=== PATIENT | female | born 1990 | race Caucasian/White ===

== ENCOUNTER 2019-05-21 05:29 | Inpatient (IN) ==
--- NOTE | 2019-05-20 13:01 | History & Physical Report ---
Date of Service May 20, 2019 Assessment & Plan (1) Supervision of normal intrauterine in multigravida: IUP at 39 weeks presents for repeat section The procedure and its risks were reviewed with the patient and all of her questions were answered to her satisfaction and consent was signed. Present on Admission?: Yes (2) H/O: : Present on Admission?: Yes History of Present Illness Primary Care Provider: NO PCP Patient is a 28 yo white female EDC 05/28/19 who presents at 39 weeks for repeat C/S. Her thus far has been uncomplicated. First was done for failure to progress. GBS negative. Allergies Allergy/AdvReac Type Severity Reaction Status Date / Time No Known Drug Allergies Allergy Verified 05/20/19 08:46 Home Medications Home Medications Medication Instructions Recorded Confirmed Type vit-iron fum-folic ac PO 12/09/18 05/20/19 History Patient History Medical History (Updated 12/09/18 @ 14:06 by Sarah Nixon) GBS carrier History of ovarian cyst History of prolonged History of spontaneous History of varicella vaccination Pain of right calf Pelvic pain Premature rupture of membranes Surgical History (Updated 12/09/18 @ 14:06 by Sarah Nixon) History of delivery x2 Family History (Updated 12/09/18 @ 14:07 by Sarah Nixon) Sister Diabetes Endometriosis Social History (Updated 12/09/18 @ 14:08 by Sarah Nixon) marital status: Current Living Situation: Family Current Living Situation Comment: spouse and children current occupation: stay at home mom Feels Safe at Home: Yes Smoking Status: Never smoker Hx Alcohol Use: No Hx Substance Use: No Review of Systems All systems reviewed & are unremarkable except as noted in HPI & below Physical Exam Constitutional: WD/WN, vitals as above Respiratory: normal respiratory effort, lungs clear to auscultation Cardiovascular: RRR, no murmur, no edema Gastrointestinal (Abdomen): normal bowel sounds, soft, nontender, no hepatosplenomegaly Inspection/Auscultation: + abdominal surgical scar (well healed - low transverse) Psychiatric: A+Ox3, euthymic affect Genitourinary: OB Exam Abdomen: + fundal height (40cm), + heart tones (130), + vertex and + estimated weight (8-9 pounds); no regular contractions cervix exam declined
[2019-05-21] MEDS ORDERED: LACTATED RINGER'S 1,000 ML IV SCH ×3 (05:45→08:45)
[2019-05-21] MEDS ORDERED: CITRIC ACID/SODIUM CITRATE 15 ML UDC PO SCH (06:00)
[2019-05-21] MEDS ORDERED: CEFAZOLIN 2000MG 2,000 MG/15 ML SYR IV SCH (06:00)
[2019-05-21 06:06] LABS: Basophils # (auto) 0.01 K/uL (0-0.2); Basophils % (auto) 0.1 %; Eosinophils # (auto) 0.08 K/uL (0-0.5); Hematocrit (blood only) 34.8 % (37-47); Hemoglobin 12.2 g/dL (12.0-16.0); Immature Granulocytes # (auto) 0.03 K/uL (0.00-0.02); Immature Granulocytes % (auto) 0.4 %; Lymphocytes # (auto) 1.93 K/uL (1.2-3.4); Lymphocytes % (auto) 25.2 %; Mean Corpuscular Volume 94.1 fL (80-100); Mean Platelet Volume 10.4 fL (7.4-10.4); Monocytes # (auto) 0.66 K/uL (0.11-0.59); Monocytes % (auto) 8.6 %; Neutrophils # (auto) 4.95 K/uL (1.4-6.5); Neutrophils % (auto) 64.7 %; Platelet Count 140 K/uL (130-400); RDW Coefficient of Variation 13.4 % (11.5-14.5); RDW Standard Deviation 45.5 fL (36.4-46.3); White Blood Count 7.66 K/uL (4.8-10.8)
[2019-05-21 06:10] LABS: Mean Corpuscular Hgb Conc 35.1 g/dL (32-36)
--- NOTE | 2019-05-21 07:13 | History & Physical Bridge Note ---
Date of Service May 21, 2019 History & Physical Bridge Note I have examined the patient, reviewed the History & Physical and in the interval since the performance of the History & Physical I have noted the following changes of clinical significance: no changes noted
[2019-05-21] MEDS ORDERED: MoRPHine SULFATE PF 1 MG/ML 10 ML AMP/VIAL ONE (07:26)
--- NOTE | 2019-05-21 07:30 | Anesthesiology Consultation ---
Date of Service May 21, 2019 Assessment & Plan Chart Review Chart Review: Acceptable Risk for Surgery Consults Requested none History Surgery Operation Date: 05/21/19 07:30 Proposed Procedures p Section in LD - Araseli Morejon MD, FACOG Height/Weight Height: 5 ft 1 in Weight: 96.162 kg Allergies Allergy/AdvReac Type Severity Reaction Status Date / Time No Known Drug Allergies Allergy Verified 05/20/19 08:46 Medications Home Medications Medication Instructions Recorded Confirmed Last Taken vit-iron fum-folic ac 1 tab PO DAILY 12/09/18 05/21/19 05/20/19 Active Medications Generic Name Dose Route Start Last Admin Trade Name Freq PRN Reason Stop Dose Admin Lactated Ringer's 1,000 mls @ 125 mls/hr 05/21/19 06:00 05/21/19 06:51 Lr IV 05/21/19 13:59 125 mls/hr .Q8H DENICE Administration NPO Date Last Intake of Fluids: 05/20/19 Time Last Intake of Fluids: 20:00 Date Last Intake of Solids: 05/20/19 Time Last Intake of Solids: 15:00 Past Medical History Medical History GBS carrier History of ovarian cyst History of prolonged History of spontaneous History of varicella vaccination Pain of right calf Pelvic pain Premature rupture of membranes Past Family History Family History Sister Diabetes Endometriosis Past Surgical History Surgical History History of delivery x2 Social History Smoking Status: Never smoker Hx Alcohol Use: No Hx Substance Use: No Physical Exam Vital Signs Last Vital Signs Temp 36.7 C 05/21/19 05:40 Pulse 90 05/21/19 05:45 Resp 18 05/21/19 05:45 BP 118/70 05/21/19 05:45 Testing Laboratory Results 05/21/19 05:54
[2019-05-21] MEDS ORDERED: ePHEDrine sulfate 50 MG/ML AMP ONE (08:00)
[2019-05-21] MEDS ORDERED: OXYTOCIN 10 UNITS/ML VIAL ONE (08:00)
[2019-05-21] MEDS ORDERED: PHENYLEPHRINE 100MCG/ML 5ML SYR ONE (08:00)
[2019-05-21] MEDS ORDERED: KETOROLAC 30 MG/ML VIAL IV PRN (08:19)
[2019-05-21] MEDS ORDERED: PROMETHAZINE HCL 25 MG in SODIUM CHLORIDE 0.9% 50 ML IV PRN (08:19)
[2019-05-21] MEDS ORDERED: NALOXONE HCL 1 MG in SODIUM CHLORIDE 0.9% 1000ML 1,000 ML IV PRN (08:19)
[2019-05-21] MEDS ORDERED: METOCLOPRAMIDE HCL 20 MG in SODIUM CHLORIDE 0.9% 50 ML IV PRN (08:19)
[2019-05-21] MEDS ORDERED: ePHEDrine sulfate 50 MG/ML AMP IV PRN (08:19)
[2019-05-21] MEDS ORDERED: LACTATED RINGER'S 500 ML IV PRN (08:19)
[2019-05-21] MEDS ORDERED: NALOXONE HCL 0.08 MG in SYRINGE 1.8 ML IV PRN (08:19)
[2019-05-21] MEDS ORDERED: DiphenhydrAMINE HCL 50 MG/ML VIAL IV PRN (08:19)
[2019-05-21] MEDS ORDERED: MEPERIDINE HCL 25 MG/ML CARP IV PRN (08:19)
[2019-05-21] MEDS ORDERED: ONDANSETRON INJ 2 MG/ML 2 ML VIAL IV PRN (08:19)
[2019-05-21] MEDS ORDERED: HYDROmorphone INJ 0.5 MG/0.5 ML SYR IV PRN (08:19)
[2019-05-21] MEDS ORDERED: NALBUPHINE HCL INJ 10 MG/ML AMP IV PRN (08:19)
[2019-05-21] MEDS ORDERED: MoRPHine SULFATE 2 MG/ML CARP IV PRN (08:19)
[2019-05-21] MEDS ORDERED: NALOXONE HCL 0.4 MG/1 ML VIAL/CARP IV PRN (08:19)
[2019-05-21] MEDS ORDERED: MoRPHine SULFATE PF 1 MG/ML 10 ML AMP/VIAL INT SPINAL ONE (08:19)
[2019-05-21] MEDS ORDERED: DC INTRASPINAL MORPHINE SCH (08:30)
[2019-05-21] MEDS ORDERED: SODIUM CHLORIDE 0.9% 1000ML 1,000 ML IV SCH (08:30)
[2019-05-21] MEDS ORDERED: NO NARCOTICS OR SEDATIVES SCH (08:30)
--- NOTE | 2019-05-21 08:40 | Post Operative Brief Note ---
PG Immediate Post Op with CF Date of Surgery May 21, 2019 Pre & Post Diagnosis Operation Date: 05/21/19 07:30 Pre-Op Diagnosis: Prior cesearean section x2 intrauterine at 39 weeks gestation Post-Op Diagnosis: same I identified the patient and participated in the time-out.: Yes Procedure Operation Date: 05/21/19 07:30 Actual Procedures p Section for viable female infant at 0803 - Araseli Morejon MD, FACOG Surgeon Araseli Morejon MD, FACOG [employer] Shannon Butler MD & [facility] MS2 Estimated Blood Loss 600 Findings Consistent with Post-Op Diagnosis Specimens Specimen Description: cord blood placenta-hold Drains Ortega Catheter
[2019-05-21] MEDS ORDERED: DIPHTHERIA/TETANUS/PERTUSSIS 0.5 ML SYR/VIAL IM ONE (08:41)
[2019-05-21] MEDS ORDERED: SUPERCREAM 0.870% 15 GM JAR EXT PRN (08:41)
[2019-05-21] MEDS ORDERED: IBUPROFEN 600 MG TAB PO PRN (08:41)
[2019-05-21] MEDS ORDERED: MAGNESIUM HYDROXIDE SUSP 30 ML UDC PO PRN (08:41)
[2019-05-21] MEDS ORDERED: SENNA 8.6 MG TAB PO PRN (08:41)
[2019-05-21] MEDS ORDERED: HYDROCORTISONE ACETATE 25 MG SUPP PR PRN (08:41)
[2019-05-21] MEDS ORDERED: BENZOCAINE 20% AER SPR 82.5 GM CAN EXT PRN (08:41)
--- NOTE | 2019-05-21 10:16 | Anesthesiology Progress Note ---
Date of Service May 21, 2019 Anesthesia Post Procedure Vital Signs Vital Signs: Temp Pulse Resp BP Pulse Ox 05/21/19 10:13 59 L 99 05/21/19 10:08 57 L 98 05/21/19 10:03 66 98 05/21/19 09:58 62 99 05/21/19 09:53 65 113/67 98 05/21/19 09:48 61 97 05/21/19 09:43 74 124/67 98 05/21/19 09:38 75 98 05/21/19 09:33 66 127/64 99 05/21/19 09:28 68 99 05/21/19 09:27 20 05/21/19 09:23 70 121/64 99 05/21/19 09:18 73 99 05/21/19 09:17 20 05/21/19 09:13 76 129/71 100 05/21/19 09:08 76 100 05/21/19 09:07 20 05/21/19 09:03 70 123/64 99 05/21/19 08:58 73 97 05/21/19 08:57 20 05/21/19 08:53 92 H 98 05/21/19 08:48 88 121/60 100 05/21/19 08:47 36.3 C L 20 05/21/19 05:45 90 18 118/70 05/21/19 05:40 36.7 C 18 Transfer of Care Handoff Completed per policy Notes Mental Status: alert / awake / arousable and participated in evaluation Patient Amnestic to Procedure: Yes Nausea / Vomiting: adequately controlled Pain: adequately controlled Airway Patency, RR, SpO2: stable & adequate BP & HR: stable & adequate Hydration State: stable & adequate Neuraxial Anesthesia: was administered and sensory block is resolving Anesthetic Complications: no major complications apparent
--- NOTE | 2019-05-21 10:47 | Operative Report ---
DATE OF OPERATION: 05/21/2019 SURGEON: Araseli Caraballo MD. WASHROOM CLEANER: Aston Butler MD. PREOPERATIVE DIAGNOSES: Intrauterine at 39 weeks, prior section x2, for repeat section. POSTOPERATIVE DIAGNOSES: Intrauterine at 39 weeks, prior section x2, for repeat section, delivery of a viable female , 7 pounds 2 ounces. PROCEDURE: Repeat low transverse section. HISTORY: The patient is a 28-year-old 4, para 2-0-1-2 white female who presents at 39 weeks for repeat section. First section was done for failure to progress. She had a repeat section with her second and is now requesting a repeat section again. She understands the risks of procedure and is willing to proceed. GROSS FINDINGS: The uterus is gravid and consistent with a term in size. The left fallopian tube and ovary are normal. The right ovary is missing, the right fallopian tube appeared to be missing its fimbriated end, but otherwise appears to be normal. DESCRIPTION OF PROCEDURE: After the patient received adequate subarachnoid block, she was prepped and draped in usual sterile fashion. A low transverse skin incision was made through the prior scar and carried to the fascia with scalpel. The fascial incision was then extended with Castro scissors. The underlying rectus muscles were bluntly and sharply dissected off the overlying fascia with Castro scissors. The rectus muscles were bluntly divided along the midline and the peritoneum was also entered bluntly. After dividing the rectus muscles, the bladder was taken down off the lower uterine segment of the uterus and placed behind the bladder blade. The lower uterine segment was entered with the scalpel and extended transversely. Membranes were ruptured for clear fluid. The was delivered with moderate fundal pressure and vacuum to bring it gently through the incision. There was a double nuchal cord, was reduced prior to delivering the rest of the infant. Rest of the infant delivered easily and was placed on the mother's abdomen easily and had vigorous crying and was moving all 4 limbs. The cord was then clamped and cut and the was handed off to Dr. Whelan who was in attendance as a handkerchief sample clerk. The placenta was expressed intact with a 3-vessel cord. Some retained membranes were removed with a Jackie clamp. The uterine cavity was explored and found to be free of any placental tissue or membranes at this time. The uterus was then closed in a running locking imbricating fashion with 0 Monocryl in 2 layers. Some bleeding along the mid portion of the incision was secured with the Bovie. The posterior cul-de-sac was irrigated with normal saline. The incision was examined once more and continued to have excellent hemostasis. The uterus was placed back inside the abdominal cavity. The gutters were explored and found to be free of any placental tissue or membranes or clot. There was 1 clot in the anterior cul-de-sac, which was removed. The incision was examined once more and continued to have excellent hemostasis. At this point, the rectus muscles were then brought together in the midline with individual stitches of 0 Monocryl. The fascia was closed with 0 Vicryl in a running fashion. The skin edges were reapproximated using a subcuticular stitch of 4-0 Vicryl. Urine was clear at the end of the case. Mother and are doing well after delivery. I attest to the content of the Intraoperative Record and any orders documented therein. Any exception s are noted below.
[2019-05-21] MEDS: OXYTOCIN 20 UNITS in LACTATED RINGER'S 1,000 ML IV SCH ×2 (12:04→20:05)
[2019-05-21] MEDS: SIMETHICONE 80 MG CHEW PO SCH ×3 (15:11→20:02)
[2019-05-21] MEDS: DOCUSATE SODIUM 100 MG CAP PO SCH (20:02)
[2019-05-22] MEDS ORDERED: KETOROLAC 30 MG/ML VIAL IV PRN (02:20)
[2019-05-22] MEDS ORDERED: DiphenhydrAMINE HCL 50 MG/ML VIAL IV PRN (02:20)
[2019-05-22] MEDS ORDERED: ZOLPIDEM TARTRATE 5 MG TAB PO PRN (02:20)
[2019-05-22] MEDS ORDERED: ONDANSETRON INJ 2 MG/ML 2 ML VIAL IV PRN (02:20)
[2019-05-22] MEDS ORDERED: MEPERIDINE HCL 50 MG/ML CARP IV PRN (02:20)
[2019-05-22] MEDS ORDERED: OXYCODONE/ACETAMINOPHEN 5mg/325mg TAB PO PRN (02:20)
[2019-05-22] MEDS ORDERED: PROMETHAZINE HCL 25 MG in SODIUM CHLORIDE 0.9% 50 ML IV PRN (02:20)
--- NOTE | 2019-05-22 06:17 | Obstetrical Progress Note ---
Date of Service <Azalea Whitley DO - Last Filed: 05/22/19 07:11> May 22, 2019 Assessment & Plan <Azalea Whitley DO - Last Filed: 05/22/19 07:11> (1) Encounter for care and examination after delivery: 28 yo F POD #1 following delivery at 39.0weeks, doing well and without complaints this morning. - POD #1. - Feels well, ambulating well, voiding well. - Will discharge today. - Following d/c will have f/u in 6 weeks. - Blood type AB-, Rubella immune. Subjective <Azalea Whitley DO - Last Filed: 05/22/19 07:11> Arlene is a 28 yo female ; POD # 1 following section delivery at 39.0weeks; doing well this AM; no abdominal cramping/pain; voiding well, passing gas but no BM; tolerating meals overnight, able to ambulate some within the room. Desires discharge today. 24 Hour I/Os: Intake: 5166 Output: 3575 Review of Systems Constitutional: denies fever, chills, sweats, headache Respiratory: denies SOB, difficulty breathing Cardiac: denies CP, chest palpitations, chest pressure Breast: denies breast pain : denies dysuria Physical Exam <Azalea Whitley DO - Last Filed: 05/22/19 07:11> General: patient is alert and oriented, in NAD Cardiac: +S1/S2, no murmurs rubs or gallops Respiratory: lungs CTA b/l, anteriorly and posteriorly, no wheezes rales or rhonchi, no increased work of breathing, symmetric chest rise, no respiratory distress Abdomen: soft, NT, +bowel sounds Uterus: uterine fundus firm, palpable below the level of the umbilicus. Incision intact, non-tender, non-erythematous, no weeping from incision site Lower Extremities: no LE edema or swelling, no deep calf pain, Aftab's sign negative b/l Results & Data <Azalea Whitley DO - Last Filed: 05/22/19 07:11> Vital Signs (Past 12 Hours) Vital Signs Temp Pulse Resp BP Pulse Ox 05/22/19 03:05 36.9 C 69 16 111/67 96 01/18/20 02:10 18 96 05/22/19 01:06 16 94 05/22/19 00:14 14 95 05/21/19 23:20 36.6 C 72 16 113/68 97 05/21/19 22:14 14 95 05/21/19 21:03 16 97 05/21/19 20:05 16 96 05/21/19 19:20 36.8 C 65 16 109/64 97 05/21/19 18:30 18 98 Laboratory Results Laboratory Results - last 24 hr 05/21/19 05:54 Blood Type AB Negative Antibody Screen NEGATIVE Medications Administered Current Medications Benzocaine (Dermoplast Pain Relieving Strawn) 1 appln EXT UD PRN PRN Reason: use on skin as needed Stop: 06/20/19 08:40 Bisacodyl (Dulcolax) 5 mg PO 1999 [facility] Stop: 05/22/19 20:01 Bisacodyl (Dulcolax) 10 mg VA PRN PRN PRN Reason: Constipation Stop: 06/22/19 08:40 Cocaine HCl (Supercream 0.870%) 1 gm EXT UD PRN PRN Reason: hemmorrhoidal inflammation Stop: 06/04/19 08:40 Diphenhydramine HCl (Benadryl) 25 mg IV QID PRN PRN Reason: Itching Stop: 06/21/19 02:19 Diphenhydramine HCl (Benadryl Capsule) 25 mg PO QID PRN PRN Reason: Itching Stop: 06/21/19 02:19 Docusate Sodium (Colace) 100 mg PO DAILY@08,21 [facility] Stop: 06/20/19 20:59 Last Admin: 05/21/19 20:02 Dose: 100 mg Documented by: Ferrous Sulfate (Feosol) 325 mg PO DAILY@08 [facility] Stop: 06/21/19 07:59 Hydrocortisone (Anusol Hc) 25 mg VA BID PRN PRN Reason: Hemorrhoids Stop: 06/20/19 08:40 Lactated Ringer's (Lr) 1,000 mls @ 125 mls/hr IV .Q8H [facility] Stop: 06/20/19 08:44 Promethazine HCl 25 mg/ Sodium (Chloride) 51 mls @ 204 mls/hr IV Q4H PRN PRN Reason: Nausea And Vomiting Stop: 06/21/19 02:19 Ibuprofen (Motrin) 600 mg PO Q4H PRN PRN Reason: Pain Stop: 06/20/19 08:40 Ketorolac Tromethamine (Toradol) 30 mg IV Q6H PRN PRN Reason: Pain Stop: 05/27/19 02:19 Magnesium Hydroxide (Milk Of Magnesia) 30 ml PO HS PRN PRN Reason: Constipation Stop: 06/20/19 08:40 Meperidine HCl (Demerol) 50 - 75 mg IV Q4H PRN PRN Reason: Pain Stop: 06/05/19 02:19 Ondansetron HCl (Zofran) 4 mg IV Q4H PRN PRN Reason: Nausea And Vomiting Stop: 06/21/19 02:19 Oxycodone/Acetaminophen (Percocet 5mg/325mg) 1 - 2 tab PO Q4H PRN PRN Reason: Pain Stop: 06/05/19 02:19 Prenat Multivit/[place]/Iron/Folic Ac ( Vitamin) 1 tab PO DAILY@08 DENICE Stop: 06/21/19 07:59 Sennosides (Senokot) 17.2 mg PO HS PRN PRN Reason: Constipation Stop: 06/20/19 08:40 Simethicone (Mylicon) 80 mg PO DAILY@08,13,17,21 DENICE Stop: 06/20/19 12:59 Last Admin: 05/21/19 20:02 Dose: 80 mg Documented by: Zolpidem Tartrate (Ambien) 5 mg PO HS PRN PRN Reason: Sleep Stop: 06/21/19 02:19 <Shannon Butler MD, FACOG - Last Filed: 05/22/19 07:14> Co-Signing Physician Notes Resident Physician Supervision Note: I was present with Dr. Tristan during the history and exam. I discussed the case with the resident and agree with the findings and plan as documented in the note. Any exceptions or clarifications are listed here: [None] Documented By: Shannon Butler MD, FACOG Resident Activity Tracking <Azalea Whitley DO - Last Filed: 05/22/19 07:11> Resident Involvement: Resident Care Provided Care Provided: OB Delivery
[2019-05-22] MEDS ORDERED: FERROUS SULFATE 325 MG TAB PO SCH (08:00)
[2019-05-22] MEDS ORDERED: PRENATAL VITAMIN 1 TAB PO SCH (08:00)
[2019-05-22] MEDS: DOCUSATE SODIUM 100 MG CAP PO SCH (08:50)
[2019-05-22] MEDS: SIMETHICONE 80 MG CHEW PO SCH (08:51)
[2019-05-22 09:29] LABS: Basophils # (auto) 0.01 K/uL (0-0.2); Basophils % (auto) 0.1 %; Eosinophils # (auto) 0.11 K/uL (0-0.5); Eosinophils % (auto) 1.1 %; Hematocrit (blood only) 35.2 % (37-47); Hemoglobin 12.1 g/dL (12.0-16.0); Immature Granulocytes # (auto) 0.03 K/uL (0.00-0.02); Immature Granulocytes % (auto) 0.3 %; Lymphocytes # (auto) 1.32 K/uL (1.2-3.4); Mean Corpuscular Hemoglobin 32.7 pg (25-34); Mean Corpuscular Hgb Conc 34.4 g/dL (32-36); Mean Corpuscular Volume 95.1 fL (80-100); Mean Platelet Volume 9.7 fL (7.4-10.4); Monocytes # (auto) 0.67 K/uL (0.11-0.59); Monocytes % (auto) 6.6 %; Neutrophils # (auto) 8.05 K/uL (1.4-6.5); Neutrophils % (auto) 78.9 %; Platelet Count 121 K/uL (130-400); RDW Coefficient of Variation 13.4 % (11.5-14.5); RDW Standard Deviation 46.4 fL (36.4-46.3); White Blood Count 10.19 K/uL (4.8-10.8)
[2019-05-22] MEDS ORDERED: bisacodyL 5 MG TABEC PO SCH (20:00)
[2019-05-23] MEDS ORDERED: bisacodyL 10 MG SUPP PR PRN (08:41)
--- NOTE | 2019-05-23 08:52 | Discharge Summary ---
PRINCIPAL DIAGNOSES: Intrauterine at 39 weeks, prior section x2, desires repeat section. PRINCIPAL PROCEDURE: Repeat low transverse section. HISTORY OF PRESENT ILLNESS: The patient is a 28-year-old 4, para 2-0-1-2 white female, who presents at 39 weeks for repeat section. She underwent a repeat section without any complications. She desired to go home on her 1st postop day. At that point, she was ambulating and tolerating regular diet. She was voiding without difficulty and was tolerating p.o. pain medication. She is afebrile during her hospital stay. Her hemoglobin on admission was 12.2, hematocrit of 34.8. Her first postop day hemoglobin 12.1, hematocrit 35.2. She was sent home in good condition with a prescription for Percocet 1-2 tablets p.o. q. 4 hours p.r.n. pain. She is also going to take Advil 3 tablets every 6 hours as needed for pain or Tylenol 650 mg p.o. every 6 hours as needed for pain. She is to call for temperature of 101 degrees or higher, heavy vaginal bleeding, burning with urination, increased redness, drainage or pain in her incision, calf tenderness or any other concerns. She will be seen in the office in 6 weeks for followup or sooner if any of these concerns arise.
== END 2019-05-22 10:13 | disposition home or self-care (01) | DRG 788 ==
LOC: 4S1 05:29 → EDSTATUS 07:30 → 4S2 11:25

== ENCOUNTER 2024-01-29 05:34 | Inpatient (IN) ==
--- NOTE | 2024-01-21 15:55 | Anesthesiology Consultation ---
Date of Service January 21, 2024 Assessment & Plan (1) Encounter for pre-operative examination: Infectious disease screening: Per assessment on 01/21/24: No known recent infectious disease contacts or current infectious disease symptoms. Chart Review Chart Review: composite layup worker initiated History Surgery Operation Date: 01/29/24 07:30 Proposed Procedures p Section in LD (Delivery of Baby Through Abdominal Incision) - Araseli Morejon MD, FACOG Height/Weight Height: 5 ft 1 in Weight: 101.605 kg Allergies Allergy/AdvReac Type Severity Reaction Status Date / Time No Known Drug Allergies Allergy Verified 01/21/24 14:32 Medications Home Medications Medication Instructions Recorded Confirmed Last Taken vit-iron fum-folic ac 1 tab PO DAILY 12/09/18 01/21/24 05/20/19 [ Tablet] Past Medical History Medical History GBS carrier History of ovarian cyst History of spontaneous Past Family History Family History Sister Diabetes Endometriosis Denies family history of Ovarian cancer Breast cancer Colorectal cancer Past Surgical History Surgical History History of postoperative nausea and vomiting Patient states "has to have anti-emetic meds or will vomit" S/P section x4 Social History Smoking Status: Never smoker Do You Dip or Chew Tobacco: No Hx Alcohol Use: No Hx Substance Use: No substance use type: does not use
--- NOTE | 2024-01-28 13:22 | History & Physical Report ---
Date of Service January 28, 2024 Assessment & Plan (1) Encounter for routine care: Plan: IUP at 39 weeks presents for repeat LTCS #5 % possibly bilateral salpingectomy if RUTHIE is very thin. the procedure and it's risks reviewed with the patient and all questions. History of Present Illness Primary Care Provider: NO PCP Patient is a 33 yo female EDC/05/28 who presents at 39 2/7 weeks for repeat LTCS and possible tubal if RUTHIE appears thin. she has had 4 prior C- Sections. otherwise has been uncomplicated. GBS- positive Allergies Allergy/AdvReac Type Severity Reaction Status Date / Time No Known Drug Allergies Allergy Verified 01/28/24 08:58 Home Medications Medication Instructions Recorded Confirmed Type vit-iron fum-folic ac 1 tab PO DAILY 12/09/18 01/28/24 History [ Tablet] Patient History Medical History GBS carrier History of ovarian cyst History of spontaneous Surgical History History of postoperative nausea and vomiting Patient states "has to have anti-emetic meds or will vomit" S/P section x4 Family History Sister Diabetes Endometriosis Denies family history of Ovarian cancer Breast cancer Colorectal cancer Social History (Updated 08/15/23 @ 14:07 by Jenna Zelaya) Smoking Status: Never smoker Second Hand Exposure: No; Do You Dip or Chew Tobacco: No; Hx Alcohol Use: No Hx Substance Use: No Preferred Language: Tajik Communication Ability: Effective Electromechanical Technologist Required: No Beliefs That Will Affect Care: None marital status: marital status details: Colin Vasquez [phone] Current Living Situation: Spouse and Family Current Living Situation Comment: spouse and 4 children, no pets current occupational status: unemployed current occupation: stay at home mom Feels Safe at Home: Yes Assistive Devices: None Review of Systems All systems reviewed & are unremarkable except as noted in HPI & below Physical Exam Constitutional: WD/WN, vitals as above Respiratory: normal respiratory effort, lungs clear to auscultation Cardiovascular: RRR, no murmur, no edema Psychiatric: A+Ox3, euthymic affect Genitourinary: OB Exam Abdomen: + fundal height (term), + heart tones (145) and + vertex Coding Level of Care Code 30409 INT INP/OBS CARE MIN Diagnoses Encounter for routine care Z34.90
[2024-01-29] MEDS: LACTATED RINGER'S 1,000 ML IV SCH ×2 (05:50→19:25)
[2024-01-29] MEDS ORDERED: SODIUM CHLORIDE 0.9% 250 ML IV PRN (06:02)
[2024-01-29 06:33] LABS: Basophils # (auto) 0.02 K/uL (0.00-0.20); Basophils % (auto) 0.3 %; Eosinophils # (auto) 0.13 K/uL (0.00-0.50); Eosinophils % (auto) 1.7 %; Hematocrit (blood only) 35.8 % (37.0-47.0); Hemoglobin 12.5 g/dl (12.0-16.0); Immature Granulocytes # (auto) 0.03 K/uL (0.01-0.20); Immature Granulocytes % (auto) 0.4 %; Lymphocytes # (auto) 2.52 K/uL (1.20-3.40); Lymphocytes % (auto) 32.3 %; Mean Corpuscular Hemoglobin 31.6 pg (25.0-34.0); Mean Corpuscular Hgb Conc 34.9 g/dL (32.0-36.0); Mean Corpuscular Volume 90.6 fL (80.0-100.0); Monocytes # (auto) 0.74 K/uL (0.11-0.59); Monocytes % (auto) 9.5 %; Neutrophils # (auto) 4.37 K/uL (1.40-6.50); Neutrophils % (auto) 55.8 %; Platelet Count 189 K/uL (130-400); RDW Standard Deviation 42.5 fL (36.4-46.3); Red Blood Count 3.95 M/uL (4.20-5.40); White Blood Count 7.81 K/ul (4.8-10.8)
[2024-01-29] MEDS: ACETAMINOPHEN 500 MG TAB PO SCH (06:33)
[2024-01-29] MEDS ORDERED: MoRPHine SULFATE PF 1 MG/ML 10 ML AMP/VIAL ONE (06:52)
[2024-01-29] MEDS: CITRIC ACID/SODIUM CITRATE 15 ML UDC PO SCH (07:00)
--- NOTE | 2024-01-29 07:22 | History & Physical Bridge Note ---
Date of Service January 29, 2024 History & Physical Bridge Note I have examined the patient, reviewed the History & Physical and in the interval since the performance of the History & Physical I have noted the following changes of clinical significance: no changes noted
[2024-01-29] MEDS: ceFAZolin 3,000 MG/72.5 ML BAG IV SCH (07:30)
[2024-01-29] MEDS ORDERED: PROMETHAZINE 6.25 MG/50.25 ML BAG IV PRN (07:52)
[2024-01-29] MEDS ORDERED: diphenhydrAMINE 50 MG/ML VIAL IV PRN (07:52)
[2024-01-29] MEDS ORDERED: ePHEDrine sulfate 50 MG/ML AMP IV PRN (07:52)
[2024-01-29] MEDS ORDERED: NALBUPHINE HCL INJ 10 MG/ML AMP IV PRN (07:52)
[2024-01-29] MEDS ORDERED: LACTATED RINGER'S 500 ML IV PRN (07:52)
[2024-01-29] MEDS ORDERED: NALOXONE HCL 0.08 MG in SYRINGE 1.8 ML IV PRN (07:52)
[2024-01-29] MEDS ORDERED: KETOROLAC 30 MG/ML VIAL IV PRN (07:52)
[2024-01-29] MEDS ORDERED: NALOXONE HCL 0.4 MG/1 ML VIAL/CARP IV PRN (07:52)
[2024-01-29] MEDS ORDERED: NALOXONE HCL 1 MG in SODIUM CHLORIDE 0.9% 1,000 ML IV PRN (07:52)
[2024-01-29] MEDS ORDERED: MoRPHine SULFATE 2 MG/ML CARP IV PRN (07:52)
[2024-01-29] MEDS ORDERED: MoRPHine SULFATE PF 1 MG/ML 10 ML AMP/VIAL INT SPINAL ONE (07:52)
[2024-01-29] MEDS ORDERED: DC INTRASPINAL MORPHINE SCH (08:00)
[2024-01-29] MEDS ORDERED: SODIUM CHLORIDE 0.9% 1,000 ML IV SCH (08:00)
[2024-01-29] MEDS ORDERED: NO NARCOTICS OR SEDATIVES SCH (08:00)
[2024-01-29] MEDS ORDERED: DEXAMETHASONE SOD INJ 4 MG/ML VIAL ONE (08:13)
[2024-01-29] MEDS ORDERED: ONDANSETRON INJ 2 MG/ML 2 ML VIAL ONE (08:13)
[2024-01-29] MEDS ORDERED: OXYTOCIN 10 UNITS/ML VIAL ONE (08:14)
[2024-01-29] MEDS ORDERED: PHENYLEPHRINE HCL 10 MG/ML VIAL ONE (08:14)
[2024-01-29] MEDS ORDERED: ePHEDrine sulfate 50 MG/5 ML SYR ONE (08:14)
[2024-01-29] MEDS ORDERED: METOCLOPRAMIDE HCL INJ 5 MG/ML 2 ML VIAL ONE (08:14)
--- NOTE | 2024-01-29 08:40 | Post Operative Brief Note ---
Immediate Post Op Note Date of Surgery January 29, 2024 Pre & Post Diagnosis Operation Date: 01/29/24 07:30 Pre-Op Diagnosis: intrauterine that desires repeat section Post-Op Diagnosis: same I identified the patient and participated in the time-out.: Yes Procedure Operation Date: 01/29/24 07:30 Actual Procedures p Section for living male child at 0758(Bilateral) - Araseli Caraballo MD, FACOG s with Possible Bilateral Tubal Ligation -not performed - Araseli Caraballo MD, FACOG Surgeon Araseli Morejon MD, FACOG Ribbing Machine Operator Nathan Menon MD Quantitative Blood Loss (QBL) 431 Findings Consistent with Post-Op Diagnosis gravid uterus left fallopian tube and ovary, right ovary absent. right fallopian present but no fimbriated end Specimens Specimen Description: A; placenta-hold B; cord blood Drains Ortega Catheter (inserted without difficulty after the spinal draining clear yellow urine. Urine output to be monitored by anesthesia intraoperatively) Anesthesia Type Spinal Complications none Disposition Accompanied Patient To Recovery: Yes
[2024-01-29] MEDS ORDERED: BENZOCAINE 20% SPRY 85 APPLN/85 GM CAN EXT PRN (08:56)
[2024-01-29] MEDS ORDERED: SENNA 8.6 MG TAB PO PRN (08:56)
[2024-01-29] MEDS ORDERED: MAGNESIUM HYDROXIDE SUSP 30 ML UDC PO PRN (08:56)
[2024-01-29] MEDS ORDERED: HYDROCORTISONE ACETATE 25 MG SUPP PR PRN (08:56)
[2024-01-29] MEDS ORDERED: CALCIUM CARBONATE 500 MG CHEWABLE TAB PO PRN (08:56)
[2024-01-29] MEDS ORDERED: DIPHTHER/TETAN/PERTUS Vaccine (Tdap, Adol/Adult) 0.5mL IM ONE (08:56)
[2024-01-29] MEDS: KETOROLAC 30 MG/ML VIAL IV SCH (09:06)
[2024-01-29] MEDS ORDERED: Nursing to Pharmacy Communication SCH ×2 (09:15→16:15)
--- NOTE | 2024-01-29 09:27 | Operative Report ---
Post Operative Report Pre & Post Diagnosis Operation Date: 01/29/24 07:30 Pre-Op Diagnosis: intrauterine that desires repeat section Post-Op Diagnosis: same I identified the patient and participated in the time-out.: Yes Procedure Operation Date: 01/29/24 07:30 Actual Procedures p Section for living male child at 0758(Bilateral) - Araseli Caraballo MD, FACOG s with Possible Bilateral Tubal Ligation -not performed - Araseli Caraballo MD, FACOG Surgeon Araseli Morejon MD, FACOG Exhibit Artist Nathan Menon MD Quantitative Blood Loss (QBL) 431 Findings Consistent with Post-Op Diagnosis Uterus is gravid and consistent with a term in size. There is no evidence of any adhesions inside the peritoneal cavity. The uterine wall is of normal thickness no evidence of any windows or thinning in the lower uterine segment. The left fallopian tube and ovary are grossly normal. The right ovary is absent and the right fallopian tube is present but the fimbriated end is absent. Specimens Placenta to hold Drains Ortega catheter to straight drainage clear urine at the end of the case Anesthesia Type Spinal Complications none Disposition Accompanied Patient To Recovery: Yes Indications IUP at 39-2/7 weeks Prior section x 4 For repeat section GBS positive Description of Procedure After the patient received adequate subarachnoid block she was prepped and draped in usual sterile fashion. Low transverse skin incision was made through her prior scar and carried to the fascia with the same scalpel. Fascial incision was extended with Castro scissors and the edges were then grasped with Cecily clamps and the underlying rectus muscle was bluntly sharply dissected off of the overlying fascia. The rectus muscles were entered sharply along the midline. The rectus muscles were then divided with stretching. The bladder blade was then placed in the abdominal cavity. The bladder was then taken down off the anterior surface of the uterus and placed behind the bladder blade. The lower uterine segment was entered with a scalpel to the level of the membranes. The incision was then extended transversely by stretching the incision in a cephalad and caudad direction. Membranes were ruptured for clear fluid. The was delivered from the vertex presentation with moderate fundal pressure and the assistance of a Kiwi vacuum to bring the head up through the uterine incision. After the head was delivered there was a loose nuchal cord which was reduced prior to delivering the rest the . He is a male infant and is vigorous upon delivery. Placenta was then manually removed and the uterus exteriorized and covered with a clean lap sponge. The uterine cavity was then explored and found to be free of any placental tissue or membranes. The uterus was closed in 2 layers in a running locking imbricating fashion with 0 Monocryl. Hemostasis was excellent on the uterine incision. The posterior cul-de-sac was suctioned for small amount of blood and a clot was also removed from the cul-de-sac. Uterine incision was examined once more continue to have excellent hemostasis. Uterus is then placed back inside the abdominal cavity the left gutter had a large clot in which was removed the right gutter was was free of any blood or clot. The rectus muscle were brought together on the midline with individual stitches of 0 Monocryl. The fascia was reapproximated in the running fashion with 0 Vicryl. After irrigating the subcutaneous layer, the skin edges were reapproximated in a subcuticular stitch of 3-0 Vicryl. Patient tolerated the procedure well was stable back in labor and delivery for immediate postpa rtum recovery. I attest to the content of the Intraoperative Record and any orders documented therein. Any exceptions are noted below. OB Procedure Charges 31686
[2024-01-29] MEDS: OXYTOCIN 20 UNITS/LR 1,002 ML IV SCH (11:28)
--- NOTE | 2024-01-29 12:15 | Anesthesiology Progress Note ---
Date of Service January 29, 2024 Anesthesia Post Procedure Vital Signs Vital Signs: Temp Pulse Resp BP Pulse Ox 01/29/24 11:04 72 114/63 01/29/24 10:54 82 118/56 L 01/29/24 10:45 36.7 C 16 01/29/24 10:35 82 119/67 01/29/24 10:24 73 129/60 01/29/24 10:15 16 01/29/24 10:14 79 127/62 01/29/24 10:04 78 127/64 01/29/24 09:54 78 125/60 01/29/24 09:45 16 01/29/24 09:44 93 H 128/60 01/29/24 09:35 16 01/29/24 09:34 76 122/60 01/29/24 09:25 16 01/29/24 09:24 84 125/63 01/29/24 09:15 16 01/29/24 09:14 75 129/61 01/29/24 09:05 16 01/29/24 09:04 76 124/66 01/29/24 08:55 16 01/29/24 08:55 91 H 115/78 01/29/24 08:54 78 86 L 01/29/24 08:45 36.5 C 18 01/29/24 08:44 95 H 116/59 L 94 01/29/24 08:43 92 H 94 01/29/24 05:53 96 H 114/64 01/29/24 05:49 36.8 C 18 Transfer of Care Handoff Completed per policy Notes Mental Status: alert / awake / arousable Patient Amnestic to Procedure: Yes Nausea / Vomiting: adequately controlled Pain: adequately controlled Airway Patency, RR, SpO2: stable & adequate BP & HR: stable & adequate Hydration State: stable & adequate Neuraxial Anesthesia: was administered and sensory block is resolving Anesthetic Complications: no major complications apparent
[2024-01-29] MEDS: ONDANSETRON INJ 2 MG/ML 2 ML VIAL IV PRN (12:29)
[2024-01-29] MEDS: SIMETHICONE 80 MG CHEW PO SCH (15:31)
[2024-01-29] MEDS: ACETAMINOPHEN 325 MG TAB PO SCH (15:33)
[2024-01-29] MEDS: IBUPROFEN 600 MG TAB PO SCH (15:34)
[2024-01-29] MEDS: DOCUSATE SODIUM 100 MG CAP PO SCH (21:06)
[2024-01-29 23:09] VITALS: TEMP 98.1
[2024-01-30] MEDS ORDERED: oxyCODONE HCL IR 5 MG TAB (IMMEDIATE RELEASE) PO PRN (01:52)
[2024-01-30] MEDS ORDERED: diphenhydrAMINE Capsule 25 MG CAP PO PRN (01:52)
[2024-01-30] MEDS ORDERED: ONDANSETRON INJ 2 MG/ML 2 ML VIAL IV PRN (01:52)
[2024-01-30] MEDS ORDERED: diphenhydrAMINE 50 MG/ML VIAL IV PRN (01:52)
[2024-01-30] MEDS ORDERED: HYDROmorphone INJ 0.5 MG/0.5 ML SYR IV PRN (01:52)
[2024-01-30] MEDS ORDERED: PROMETHAZINE 12.5 MG/50.5 ML BAG IV PRN (01:52)
[2024-01-30 03:46] VITALS: PULSE 80; RESP 16; O2SAT 96
[2024-01-30 06:16] LABS: Basophils # (auto) 0.02 K/uL (0.00-0.20); Basophils % (auto) 0.2 %; Eosinophils % (auto) 1.1 %; Hematocrit (blood only) 31.2 % (37.0-47.0); Hemoglobin 10.6 g/dl (12.0-16.0); Immature Granulocytes # (auto) 0.04 K/uL (0.01-0.20); Immature Granulocytes % (auto) 0.4 %; Lymphocytes # (auto) 2.72 K/uL (1.20-3.40); Lymphocytes % (auto) 28.9 %; Mean Corpuscular Hemoglobin 31.5 pg (25.0-34.0); Mean Corpuscular Volume 92.9 fL (80.0-100.0); Mean Platelet Volume 10.2 fL (9.4-12.4); Monocytes # (auto) 0.76 K/uL (0.11-0.59); Monocytes % (auto) 8.1 %; Neutrophils # (auto) 5.77 K/uL (1.40-6.50); Neutrophils % (auto) 61.3 %; Platelet Count 157 K/uL (130-400); RDW Coefficient of Variation 13.2 % (11.5-14.5); Red Blood Count 3.36 M/uL (4.20-5.40); White Blood Count 9.41 K/ul (4.8-10.8)
--- NOTE | 2024-01-30 07:06 | Obstetrical Progress Note ---
Date of Service January 30, 2024 Assessment & Plan (1) delivery delivered: Plan: 1st POD following delivery in 31 ears at 39+3 week POG Both mom and baby doing well. Continue care as per protocol. Encouraged nursing with mother's milk. Encouraged ambulation. Discharge on petient's request today. Admission and Anticipated Discharge Date Admission Date: January 29, 2024 Supervising Physician Co-Signing Physician Notes Resident Physician Supervision Note: I interviewed and examined the patient. Discussed with Dr. Montano and agree with findings and plan as documented in the note. Any exceptions or clarifications are listed here: [None] Documented By: Araseli Morejon MD, FACOG Subjective 1st POD following delivery in 31 ears at 39+3 week POG. No active complains Mom Lying comfortable on bed. Baby in Nursery. Pain: Mild, intermittent, manageable on painkillers. Lochia: Moderate Diet: Regular OB diet Gas: Passed gas Peeing: Passed Urine after duran's removal Ambulation: to Bathroom without any complication Answered her queries. She wants to go home today if possible. Review of Systems Review of Systems: No SOB, chest pain, leg pain No dizziness, headache, palpitation No Blurring of vision , fever Physical Exam Physical Exam: General: Alert and oriented. No acute distress. CVS: S1 S2+ No murmurs, regular rhythm. Respiratory: CTA bilaterally. No rhonchi, wheezes, or crackles. No increased work of breathing. Abdomen: Bowel sound +. Soft, nontender Uterus: Fundus firm and palpable few cm below the umbilicus. Well contracted. Incision site looks healthy: Dry, No swelling, No Erythema Lower extremities:No deep calf pain. Pneumatic compression in situ. Results & Data Vital Signs (Past 12 Hours) Vital Signs Temp Pulse Resp BP Pulse Ox O2 Del Method 01/30/24 03:44 36.7 C 80 16 94/58 L 96 Room Air 01/29/24 23:30 94 01/29/24 23:08 36.7 C 79 18 98/61 L 94 Room Air 01/29/24 22:30 95 01/29/24 21:30 99 01/29/24 20:30 98 01/29/24 19:30 96 Resident Activity Tracking Resident Involvement: Resident Care Provided Care Provided: OB Delivery
[2024-01-30] MEDS: FERROUS SULFATE 325 MG TAB PO SCH (08:25)
[2024-01-30] MEDS: PRENATAL VITAMIN 1 TAB PO SCH (08:25)
[2024-01-30 10:19] VITALS: BP 104/68
[2024-01-30] MEDS ORDERED: bisacodyL 5 MG TABEC PO SCH (20:00)
[2024-01-31] MEDS ORDERED: bisacodyL 10 MG SUPP PR PRN (08:56)
[2024-01-31] MEDS ORDERED: ACETAMINOPHEN 325 MG TAB PO PRN (13:56)
[2024-01-31] MEDS ORDERED: IBUPROFEN 600 MG TAB PO PRN (15:00)
== END 2024-01-30 11:50 | disposition home or self-care (01) | DRG 788 ==
LOC: 4S1 05:34 → EDSTATUS 07:30 → 4E2 11:28
PROC: M.PPTLD (2024-01-29 07:30)